=== PATIENT | female | born 1940 | race African-American/Black ===

== ENCOUNTER 2017-01-25 16:24 | Emergency (ER) | payer MEDICARE ==
[2017-01-25 16:45] VITALS: PULSE 103; BMI 25.8
[2017-01-25] MEDS ORDERED: SODIUM CHLORIDE 1,000 ML IV STA (17:30)
--- NOTE | 2017-01-25 18:20 | PDOC ---
History of Present Illness - General Chief Complaint: Vaginal Bleeding Stated Complaint: RECTAL BLEED Time Seen by Provider: 01/25/17 17:01 History Source: Patient Exam Limitations: No Limitations - History of Present Illness Travel History: No Initial Comments: 01/25/17 18:07 76-year-old female presents with vaginal bleeding since this morning. Patient denies fever, chills, nausea, abdominal pain, rectal bleeding, or dysuria. Patient states history of fibroids and used to be followed by Dr. Pereira and has not seen him in numerous years. Patient denies weakness, nausea, dizziness, history of anemia, or abdominal distention. Timing/Duration: reports: constant Quality: reports: moderate Pain Radiation: reports: no radiation Activities at Onset: reports: none Aggravating Factors: improves with: None Alleviating Factors: improves with: None Past History - Travel Traveled outside of the country in the last 30 days: No Close contact w/someone who was outside of country & ill: No - Past Medical History Allergies/Adverse Reactions: Allergies Allergy/AdvReac Type Severity Reaction Status Date / Time Penicillins AdvReac Verified 01/25/17 16:45 Home Medications: Ambulatory Orders Albuterol 0.083% Nebulizer Linnea [Ventolin 0.083% Nebulizer Soln -] 1 neb NEB QID PRN #1 box 01/23/13 Albuterol Sulfate Inhaler - [Ventolin HFA Inhaler -] 1 - 2 inh IH QID #1 inhaler 01/23/13 Alendronate Sodium [Fosamax] 10 mg PO DAILY 01/23/13 Amlodipine Besylate [Norvasc] 2.5 mg PO DAILY 01/23/13 Lisinopril [Prinivil] 5 mg PO DAILY 01/23/13 Metformin HCl [Glucophage] 500 mg PO DAILY 01/23/13 Simvastatin [Zocor] 10 mg PO HS 01/23/13 Acetaminophen [Tylenol] 650 mg PO PRN PRN 05/11/14 Aspirin [ASA -] 81 mg PO DAILY 05/11/14 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 Diabetes: Yes HTN: Yes Hypercholesterolemia: Yes Suicide Attempt (Hx): No - Surgical History Cardiac Surgery: Yes (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, pacemaker, 2stents) - Psycho/Social/Smoking Cessation Hx Anxiety: No Suicidal Ideation: No Smoking Status: Yes Smoking History: Former smoker Have you smoked in the past 12 months: No Number of Cigarettes Smoked Daily: 20 If you are a former smoker, when did you quit?: 5yrs Information on smoking cessation initiated: No Hx Alcohol Use: No Drug/Substance Use Hx: No Substance Use Type: None Patient Lives Alone: No Review of Systems - Review of Systems Able to Perform ROS?: Yes Constitutional: No: Symptoms Reported ABD/GI: No: Symptoms Reported : Yes: Discharge (vaginal bleeding) Musculoskeletal: No: Symptoms Reported Integumentary: No: Symptoms Reported Neurological: No: Symptoms reported Endocrine: No: Symptoms Reported Hematologic/Lymphatic: No: Symptoms Reported *Physical Exam - Vital Signs Last Vital Signs Temp Pulse Resp BP Pulse Ox 98.6 F 103 H 16 143/73 98 01/25/17 16:40 01/25/17 16:40 01/25/17 16:40 01/25/17 16:40 01/25/17 16:40 - Physical Exam General Appearance: Yes: Nourished, Appropriately Dressed. No: Apparent Distress HEENT: negative: Pale Conjunctivae Neck: positive: Normal Thyroid, Supple Respiratory/Chest: positive: Lungs Clear, Normal Breath Sounds. negative: Respiratory Distress, Accessory Muscle Use Cardiovascular: positive: Regular Rhythm, Tachycardia. negative: Murmur Female Pelvic Exam: positive: vaginal bleeding (bright red no clots) Gastrointestinal/Abdominal: positive: Soft, Distended. negative: Normal Bowel Sounds, Tenderness Rectal Exam: positive: heme negative stool (brown stool) Extremity: positive: Normal Capillary Refill. negative: Pedal Edema Integumentary: positive: Normal Color, Warm, Moist Neurologic: positive: Motor Strength 5/5 (ambulatory) ED Treatment Course - RADIOLOGY Radiology Studies Ordered: Category Date Time Status PELVIC / BLADDER US [US] Stat Ultrasound 01/25/17 17:30 Ordered TRANSVAGINAL ULTRASOUND US [US] Stat Ultrasound 01/25/17 17:30 Ordered Medical Decision Making - Medical Decision Making 01/25/17 18:26 Patient complains of vaginal bleeding since this morning. Patient with history of fibroids. Patient concerning for malignant versus benign masses. Patient ordered for labs and ultrasound.
--- NOTE | 2017-01-25 19:01 | PDOC ---
*Physical Exam - Vital Signs Last Vital Signs Temp Pulse Resp BP Pulse Ox 98.6 F 103 H 16 143/73 98 01/25/17 16:40 01/25/17 16:40 01/25/17 16:40 01/25/17 16:40 01/25/17 16:40 - Physical Exam Comments: 01/25/17 19:01 The patient was examined by KERRIE Quiroga under my direct supervision. I personally evaluated the patient. I concur with the above findings and the plan of care. 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 return to the ER if vaginal bleeding soaking through 2 pads/ hour, dizziness, severe abdominal pain, fever
--- NOTE | 2017-01-25 19:12 | PDOC ---
*Physical Exam - Vital Signs Last Vital Signs Temp Pulse Resp BP Pulse Ox 98.6 F 103 H 16 143/73 98 01/25/17 16:40 01/25/17 16:40 01/25/17 16:40 01/25/17 16:40 01/25/17 16:40 - Physical Exam General Appearance: Yes: Appropriately Dressed Cardiovascular: positive: Regular Rhythm, Regular Rate Female Pelvic Exam: positive: other (differed . see previous provider notes) Gastrointestinal/Abdominal: positive: Normal Bowel Sounds Extremity: positive: Normal Capillary Refill, Normal Inspection, Normal Range of Motion ED Treatment Course - LABORATORY CBC & Chemistry Diagram: 01/25/17 18:30 01/25/17 18:30 - Medications Given in the ED: ED Medications Discontinued Medications Generic Name Dose Route Start Last Admin Trade Name Freq PRN Reason Stop Dose Admin Sodium Chloride 1,000 mls @ 1,000 mls/hr 01/25/17 17:30 01/25/17 19:02 Normal Saline - IV 01/25/17 18:29 1,000 mls/hr ASDIR STA Administration Progress Note - Progress Note Progress Note: A: vaginal bleeding P: thickened endometrium: u/s. fibroid uterus *DC/Admit/Observation/Transfer Diagnosis at time of Disposition: Vaginal bleeding - Discharge Dispostion Disposition: HOME - Referrals Referrals: Geovanny Orantes MD [Primary Care Provider] - Narciso Esparza MD [Staff Physician] - - Patient Instructions Additional Instructions: follow up with manager human capital as soon as possible. return to the ER if vaginal bleeding soaking through 2 pads/ hour, dizziness, severe abdominal pain, fever
[2017-01-25 19:15] LABS: BASOPHIL 0.8 % (0-2.0); EOSINOPHIL 1.4 % (0-4.5); MCH 28.5 pg (25.7-33.7); MCHC 32.2 g/dl (32.0-36.0); MEAN CELL VOLUME 88.4 fl (80-96); MEAN PLT VOLUME 9.9 fl (7.5-11.1); NEUTROPHILS 73.7 % (42.8-82.8); RDW 16.7 % (11.6-15.6); WHITE BLOOD COUNT 7.1 K/mm3 (4.0-10.0)
[2017-01-25 19:41] LABS: ALBUMIN 3.5 g/dl (3.4-5.0); ANION GAP 10 (8-16); BILIRUBIN,TOTAL 0.6 mg/dL (0.2-1.0); CALCIUM 9.5 mg/dL (8.5-10.1); CO2 30 mmol/L (21-32); COCKROFT - GAULT 78.3275; CREATININE 0.7 mg/dL (0.55-1.02); GLUCOSE,RANDOM 109 mg/dL (74-106); SGOT/AST 10 U/L (15-37); SGPT/ALT 15 U/L (12-78); TOT PROT 8.1 g/dl (6.4-8.2)
[2017-01-25 19:42] LABS: ALK PHOS 52 U/L (45-117)
[2017-01-25 20:46] LABS: PLATELET COUNT 190 K/MM3 (134-434); PLATELET ESTIMATE ADEQUATE (NORMAL)
[2017-01-25 21:24] LABS: URINE APPEARANCE SLCLOUDY; URINE BILIRUBIN NEGATIVE (NEGATIVE); URINE COLOR RED; URINE GLUCOSE (UA) NEGATIVE (NEGATIVE); URINE KETONE NEGATIVE (NEGATIVE); URINE NITRITE NEGATIVE (NEGATIVE); URINE UROBILINOGEN NEGATIVE E.U./dl (0.2-1.0)
[2017-01-25 22:20] LABS: URINE BLOOD 3+ (NEGATIVE); URINE LEUK ESTERASE TRACE (NEGATIVE); URINE PROTEIN 1+ (NEGATIVE)
[2017-01-25 22:21] LABS: URINE MUCUS RARE; URINE RBC 1816 /hpf (0-3); URINE WBC 96 /hpf (3-5)
[2017-01-25 22:58] VITALS: TEMP 98
[2017-01-25 23:21] VITALS: BP 117/84
== END 2017-01-25 23:51 | disposition home or self-care (01) ==
LOC: JER 16:24
DX: D25.9 Leiomyoma of uterus, unspecified (principal)
CPT/HCPCS: 36415; 76856-TC; 80053; 81003; 81015; 85025; 86850; 86900; 86901; 99283-25

== ENCOUNTER 2022-02-07 15:19 | Inpatient (IN) | payer BC, MEDICARE, OTHER ==
[2022-02-07 18:14] LABS: ALBUMIN 3.6 g/dl (3.4-5.0); CALCIUM 10.2 mg/dL (8.5-10.1)
[2022-02-07 18:17] LABS: CREATININE 2.6 mg/dL (0.55-1.3)
[2022-02-07 18:19] LABS: BILIRUBIN,TOTAL 1.4 mg/dL (0.2-1); TOT PROT 8.1 g/dl (6.4-8.2)
[2022-02-07 18:22] LABS: N-TERMINAL BNP 1004.5 pg/ml (5-450)
[2022-02-07 19:04] LABS: BASO % 0.3 % (0-2.0); EOS % 1.5 % (0-4.5); HEMATOCRIT 44.6 % (32.4-45.2); HEMOGLOBIN 14.4 GM/dL (10.7-15.3); MCH 29.2 pg (25.7-33.7); MCHC 32.2 g/dl (32.0-36.0); MEAN CELL VOLUME 90.4 fl (80-96); MEAN PLT VOLUME 9.5 fl (7.5-11.1); MONO % 9.8 % (3.8-10.2); NEUT % 61.4 % (42.8-82.8); PLATELET COUNT 218 10^3/uL (134-434); RBC 4.94 M/mm3 (3.60-5.2); RDW 17.2 % (11.6-15.6); WHITE BLOOD COUNT 4.8 K/mm3 (4.0-10.0)
[2022-02-07] MEDS ORDERED: LACTATED RINGERS SOLUTION 1,000 ML/1,000 ML INFUS.BAG IV SCH (20:30)
[2022-02-07] MEDS ORDERED: ACETAMINOPHEN 325 MG TABLET (FP) PO PRN (21:53)
[2022-02-07] MEDS: INSULIN SLIDING SCALE (NOVOLOG) 1 VIAL SQ SCH (23:47)
[2022-02-08 01:30] LABS: EPI CELLS >36 /uL (0-25.1); HYALINE CASTS 2 /uL (0-3.1); URINE APPEARANCE CLEAR; URINE BACTERIA 1550 /uL (0-1359); URINE BILIRUBIN NEGATIVE (NEGATIVE); URINE COLOR YELLOW; URINE GLUCOSE (UA) NEGATIVE (NEGATIVE); URINE KETONE NEGATIVE (NEGATIVE); URINE LEUK ESTERASE 1+ (NEGATIVE); URINE NITRITE NEGATIVE (NEGATIVE); URINE PROTEIN TRACE (NEGATIVE); URINE RBC 3 /uL (0-23.9); URINE UROBILINOGEN 0.2 mg/dL (0.2-1.0); URINE WBC 74 /uL (0-25.8)
[2022-02-08] MEDS ORDERED: ALBUTEROL SO4 HFA INHALER IH PRN (05:20)
[2022-02-08] MEDS: HEPARIN NA (PORCINE) 5,000 UNITS/ML 1ML VIAL SQ SCH ×3 (05:57→21:54)
[2022-02-08] MEDS: INSULIN SLIDING SCALE (NOVOLOG) 1 VIAL SQ SCH ×4 (06:34→21:59)
[2022-02-08 09:03] LABS: BASO % 0.3 % (0-2.0); EOS % 1.4 % (0-4.5); HEMATOCRIT 38.1 % (32.4-45.2); HEMOGLOBIN 12.8 GM/dL (10.7-15.3); LYMPH % 26.6 % (8-40); MCHC 33.5 g/dl (32.0-36.0); MEAN CELL VOLUME 89.6 fl (80-96); MEAN PLT VOLUME 9.2 fl (7.5-11.1); MONO % 9.5 % (3.8-10.2); NEUT % 62.2 % (42.8-82.8); PLATELET COUNT 172 10^3/uL (134-434); RBC 4.26 M/mm3 (3.60-5.2); RDW 16.8 % (11.6-15.6); WHITE BLOOD COUNT 4.1 K/mm3 (4.0-10.0)
[2022-02-08 09:13] LABS: INR 1.07 (0.83-1.09); PROTHROMBIN TIME (PATIENT) 12.3 SEC (9.7-13.0)
[2022-02-08 09:15] LABS: ACTIVATED PTT 29.5 SECONDS (25.2-36.5)
[2022-02-08 09:20] LABS: CALCIUM 9.6 mg/dL (8.5-10.1)
[2022-02-08 09:21] LABS: BLOOD UREA NITROGEN 30.1 mg/dL (7-18); MAGNESIUM 2.3 mg/dL (1.8-2.4)
[2022-02-08 09:24] LABS: CREATININE 2.3 mg/dL (0.55-1.3); PHOSPHOROUS 4.5 mg/dL (2.5-4.9)
[2022-02-08] MEDS: ASPIRIN 81 MG CHEWABLE TABLETS PO SCH (10:16)
[2022-02-08] MEDS: MEMANTINE HCL 10 MG TABLET (FP) PO SCH (21:54)
[2022-02-08] MEDS: ATORVASTATIN CA 10 MG TABLET (FP) PO SCH (21:54)
[2022-02-09] MEDS: INSULIN SLIDING SCALE (NOVOLOG) 1 VIAL SQ SCH ×4 (06:02→21:57)
[2022-02-09] MEDS: HEPARIN NA (PORCINE) 5,000 UNITS/ML 1ML VIAL SQ SCH ×3 (06:02→21:57)
[2022-02-09 09:42] LABS: HEMATOCRIT 41.5 % (32.4-45.2); HEMOGLOBIN 13.5 GM/dL (10.7-15.3); MCH 29.4 pg (25.7-33.7); MCHC 32.5 g/dl (32.0-36.0); MEAN CELL VOLUME 90.6 fl (80-96); MEAN PLT VOLUME 9.4 fl (7.5-11.1); PLATELET COUNT 186 10^3/uL (134-434); RBC 4.58 M/mm3 (3.60-5.2); RDW 16.9 % (11.6-15.6); WHITE BLOOD COUNT 3.4 K/mm3 (4.0-10.0)
[2022-02-09] MEDS: ASPIRIN 81 MG CHEWABLE TABLETS PO SCH (09:47)
[2022-02-09] MEDS: MEMANTINE HCL 10 MG TABLET (FP) PO SCH ×2 (09:47→21:57)
[2022-02-09 10:20] LABS: ALBUMIN 3.4 g/dl (3.4-5.0)
[2022-02-09 10:21] LABS: CREATININE 1.6 mg/dL (0.55-1.3)
[2022-02-09 10:22] LABS: BILIRUBIN,TOTAL 1.8 mg/dL (0.2-1); CALCIUM 10.1 mg/dL (8.5-10.1); TOT PROT 7.6 g/dl (6.4-8.2)
[2022-02-09 10:23] LABS: BLOOD UREA NITROGEN 29.5 mg/dL (7-18)
[2022-02-09 10:25] LABS: ANISOCYTOSIS 1+; MACROCYTOSIS 0
[2022-02-09] MEDS: ATORVASTATIN CA 10 MG TABLET (FP) PO SCH (21:57)
[2022-02-10] MEDS: HEPARIN NA (PORCINE) 5,000 UNITS/ML 1ML VIAL SQ SCH (06:13)
[2022-02-10] MEDS: INSULIN SLIDING SCALE (NOVOLOG) 1 VIAL SQ SCH ×2 (06:14→11:58)
[2022-02-10 06:59] VITALS: PULSE 77
[2022-02-10] MEDS: ASPIRIN 81 MG CHEWABLE TABLETS PO SCH (09:05)
[2022-02-10] MEDS: MEMANTINE HCL 10 MG TABLET (FP) PO SCH (09:06)
[2022-02-10 12:21] VITALS: BP 122/70; TEMP 98.4
[2022-02-10 13:47] LABS: CALCIUM 9.9 mg/dL (8.5-10.1)
[2022-02-10 13:51] LABS: CREATININE 1.2 mg/dL (0.55-1.3)
== END 2022-02-10 17:54 | disposition home health service (06) | DRG 683 ==
LOC: JER 15:19 → JERBED 19:58 → J4S 02-08 00:17
PROVIDERS: ADMIT Hospitalist; ATTEND Family Medicine
DX: N17.9 Acute kidney failure, unspecified (principal); I50.22 Chronic systolic (congestive) heart failure; I13.0 Hypertensive heart and chronic kidney disease with heart failure and stage 1 through stage 4 chronic kidney disease, or unspecified chronic kidney disease; J44.9 Chronic obstructive pulmonary disease, unspecified; E11.9 Type 2 diabetes mellitus without complications; R77.8 Other specified abnormalities of plasma proteins; E78.5 Hyperlipidemia, unspecified; F03.90 Unspecified dementia, unspecified severity, without behavioral disturbance, psychotic disturbance, mood disturbance, and anxiety; R11.2 Nausea with vomiting, unspecified; N18.9 Chronic kidney disease, unspecified; I25.10 Atherosclerotic heart disease of native coronary artery without angina pectoris; Z95.1 Presence of aortocoronary bypass graft; Z98.61 Coronary angioplasty status
CPT/HCPCS: 36415; 71045-TC-FY; 76775-TC; 80048; 80053; 81003; 82962; 83735; 83880; 84100; 84443; 84484; 85025; 85610; 85730; 86140; 87086; 93005; 93010; 93306-TC; 99285-25; C9803-CS; J1644; U0003; U0005

== ENCOUNTER 2023-10-09 08:15 | Day surgery (SDC) | payer OTHER ==
[2023-10-05 12:37] VITALS: BMI 30.3
[2023-10-09 09:02] LABS: HEMOGLOBIN 13.2 GM/dL (10.7-15.3); MCH 29.9 pg (25.7-33.7); MEAN CELL VOLUME 90.5 fl (80-96); MEAN PLT VOLUME 8.9 fl (7.5-11.1); PLATELET COUNT 176 10^3/uL (134-434); RBC 4.42 M/mm3 (3.60-5.2); WHITE BLOOD COUNT 3.7 K/mm3 (4.0-10.0)
[2023-10-09] MEDS: ceFAZolin SODIUM 1 GM VIAL IVPB ONE (12:45)
[2023-10-09] MEDS ORDERED: LACTATED RINGERS SOLUTION 1,000 ML IV SCH (14:45)
[2023-10-09 17:05] VITALS: PULSE 74; RESP 18; TEMP 97.1
[2023-10-09 17:48] VITALS: BP 131/59
== END 2023-10-09 17:35 | disposition home or self-care (01) ==
LOC: JASU-SURG 08:15
PROVIDERS: ATTEND Surgery
PROC: 0HBU0ZZ Excision of Left Breast, Open Approach (ICD-10-PCS; principal; 2023-10-09 10:00)
DX: C50.912 Malignant neoplasm of unspecified site of left female breast (principal); D24.2 Benign neoplasm of left breast
CPT/HCPCS: 36415; 78195-TC; 82962; 85027; 94760; A9541